=== PATIENT | female | born 1960 | race Caucasian/White ===

== ENCOUNTER 2022-05-08 01:53 | Emergency (ER) | payer SELFPAY ==
[~2022-05-08] VITALS: Ht 157.5 cm; Wt 74.8 kg
[2022-05-08] MEDS ORDERED: LORAZEPAM 2 MG/1 ML VIAL ONE (02:12)
[2022-05-08] MEDS ORDERED: ASPIRIN 81 MG TAB.CHEW ONE (02:13)
[2022-05-08] MEDS ORDERED: IV NORMAL SALINE 1000 ML BAG IV ONE (02:15)
[2022-05-08] MEDS ORDERED: LORAZEPAM 2 MG/1 ML VIAL IV ONE (02:15)
[2022-05-08] MEDS ORDERED: ASPIRIN 81 MG TAB.CHEW PO ONE ×2 (02:15)
--- NOTE | 2022-05-08 02:15 | NUR ---
XRAY AT BEDSIDE.
[2022-05-08 02:42] LABS: HEMATOCRIT 35.9 % (31.2-41.9); MEAN CORPUSCULAR HEMOGLOBIN 27.2 uug (24.7-32.8); MEAN CORPUSCULAR VOLUME 79.5 fL (75.5-95.3); PLATELET COUNT (AUTO) 402 K/uL (179-408)
[2022-05-08 02:47] LABS: CARBON DIOXIDE 26 mmol/L (21-32); CHLORIDE 99 mmol/L (98-107); CREATININE 0.7 mg/dL (0.6-1.3); GLUCOSE 139 mg/dL (74-106); POTASSIUM 3.8 mmol/L (3.5-5.1); UREA NITROGEN, BLOOD 12 mg/dL (7-18)
[2022-05-08 02:59] LABS: ALANINE AMINOTRANSFERASE 34 U/L (14-59); ALKALINE PHOSPHATASE 122 U/L (50-136); ASPARTATE AMINOTRANSFERASE 17 U/L (15-37); BILIRUBIN,DIRECT 0.1 mg/dL (0.0-0.2); BILIRUBIN,TOTAL 0.3 mg/dL (0.2-1.0); TOTAL PROTEIN, SERUM 7.9 g/dL (6.4-8.2)
--- NOTE | 2022-05-08 04:30 | NUR ---
ASSISTED PT TO AMBULATE TO RESTROOM, STEADY GAIT, DENIES TOLBERT/DIZZYNESS.
[2022-05-08] MEDS ORDERED: ALPR0.5T PO (05:04)
--- NOTE | 2022-05-08 05:17 | NUR ---
Patient discharged to home in stable condition. Written and verbal after care instructions given. Patient verbalizes understanding of instructions. Stressed follow up or return to ER for worsening s/s. Steady gait, denies any pain/discomfort. IV removed. No TOLBERT/dizzyness. No n/v/d. No changes in LOC. Accompanied by daughter.
[2022-05-08 05:18] VITALS: BP 148/74
== END 2022-05-08 05:20 | disposition home or self-care (01) ==
LOC: ER 02:00
DX: R00.2 Palpitations (principal); R20.2 Paresthesia of skin; R07.9 Chest pain, unspecified; R00.0 Tachycardia, unspecified; Z20.822 Contact with and (suspected) exposure to COVID-19; F41.9 Anxiety disorder, unspecified; Z88.6 Allergy status to analgesic agent; Z88.2 Allergy status to sulfonamides; R03.0 Elevated blood-pressure reading, without diagnosis of hypertension
CPT/HCPCS: 36415; 71045; 80048; 80076; 83880; 84484 ×2; 85025; 85379; 85730; 87426; 93005; 96361; 96374; 99285; J2060; J7040; A4663